=== PATIENT | male | born 1990 | race African-American/Black ===

== ENCOUNTER 2020-01-23 19:07 | Emergency (ER) | payer SELFPAY ==
[2020-01-23 19:50] LABS: Bacteria/HPF None Seen HPF (None Seen); Bilirubin Negative (Negative); Blood, Urine Trace (Negative); Clarity Turbid (Clear); Glucose, Urine (Dipstick) Normal (Negative); Leukocyte 500 Leu/uL (Negative); Mucous/LPF 1+ LPF (<2+); Nitrite Negative (Negative); Protein, Urine (Dipstick) 20 mg/dL (Neg-Trace); Squamous Epithelial None Seen HPF (0-3); WBC/HPF Greater than 50 HPF (0-3)
[2020-01-23] MEDS ORDERED: Azithromycin 500 MG VIAL ONE (20:59)
[2020-01-23] MEDS ORDERED: cefTRIAXone\\ROCEPHIN 250 MG VIAL ONE (20:59)
[2020-01-23] MEDS ORDERED: Azithromycin 250 MG TAB ONE (21:00)
[2020-01-23] MEDS ORDERED: Lidocaine 1% (PF) 30 ML VIAL ONE (21:02)
[2020-01-24 20:43] LABS: Chlam.trachomatis by PCR,Urine Not Detected (NotDetected)
== END 2020-01-23 21:30 | disposition home or self-care (01) ==
LOC: ERS 19:07
DX: N34.2 Other urethritis (principal); F17.210 Nicotine dependence, cigarettes, uncomplicated
CPT/HCPCS: 81003; 81015; 87491; 87591; 96372; 99283; J0456; J0696; J2001